=== PATIENT | female | born 1990 | race Caucasian/White ===

== ENCOUNTER 2017-06-07 11:12 | Emergency (ER) | payer MEDICAID ==
[~2017-06-07] VITALS: Ht 162.6 cm; Wt 73.0 kg
[2017-06-07 11:17] VITALS: BP 108/63
== END 2017-06-07 12:31 | disposition home or self-care (01) ==
LOC: ER 11:14
DX: S93.401A Sprain of unspecified ligament of right ankle, initial encounter (principal); W18.39XA Other fall on same level, initial encounter; Y93.68 Activity, volleyball (beach) (court); Y92.89 Other specified places as the place of occurrence of the external cause; Y99.8 Other external cause status
CPT/HCPCS: 29515; 73610; 99284